=== PATIENT | male | born 2000 | race Hispanic/Latino ===

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

== ENCOUNTER 2019-06-08 17:15 | Emergency (ER) | payer OTHER ==
[2019-06-08] MEDS ORDERED: IBUPROFEN 400 MG TABLET ONE (17:37)
[2019-06-08] MEDS ORDERED: IBUPROFEN 200 MG TAB ONE (17:38)
[2019-06-08 18:35] LABS: BASOPHILS % (AUTO) 0.6 % (0.0-5.0); EOSINOPHILS % (AUTO) 1.1 % (0.0-8.0); LYMPHOCYTES % (AUTO) 15.8 % (21.0-51.0); MEAN CORPUSCULAR HEMOGLOBIN 27.8 pg (27.0-33.0); MEAN CORPUSCULAR HGB CONC 33.7 g/dL (32.0-36.0); MEAN CORPUSCULAR VOLUME 82.6 fL (80-100); MONOCYTES % (AUTO) 11.7 % (3.0-13.0); NEUTROPHILS % (AUTO) 70.5 % (40.0-77.0); PLATELET COUNT (AUTO) 210 K/uL (130-400); RED BLOOD CELL COUNT(AUTO) 5.57 MIL/uL (4.50-6.20); RED CELL DISTRIBUTION WIDTH 12.5 % (11.0-15.5); WHITE BLOOD COUNT (AUTO) 6.6 K/uL (4.8-10.8)
[2019-06-08 18:53] LABS: ALBUMIN 4.3 g/dL (3.5-5.0); BILIRUBIN,TOTAL 0.3 mg/dL (0.2-1.0); TOTAL PROTEIN, SERUM 8.1 g/dL (6.0-8.3)
[2019-06-08 19:01] LABS: RAPID GROUP A STREP NEGATIVE (NEGATIVE)
[2019-06-08 19:04] LABS: POTASSIUM 3.7 mmol/L (3.5-5.1)
[2019-06-08 20:27] LABS: INR 0.97 (0.85-1.15); PARTIAL THROMBOPLASTIN TIME 33.2 SEC (26.3-35.5); PROTHROMBIN TIME 10.5 SEC (9.6-11.6)
[2019-06-08 20:35] LABS: CREATINE KINASE, TOTAL 187 U/L (21-232); MYOGLOBIN 60 ng/mL (10-92); TROPONIN I < 0.04 ng/mL (0.00-0.06)
== END 2019-06-08 21:50 | disposition home or self-care (01) ==
LOC: EDH 17:15
DX: B34.9 Viral infection, unspecified (principal); J45.909 Unspecified asthma, uncomplicated; Z20.828 Contact with and (suspected) exposure to other viral communicable diseases
CPT/HCPCS: 36415; 71045; 80053; 82550; 83615; 83874; 84145; 84484; 85025; 85610; 85730; 87040; 87633; 87635; 87804; 87880; 93005

== ENCOUNTER 2022-04-30 01:06 | Emergency (ER) | payer OTHER, SELFPAY ==
[~2022-04-30] VITALS: Ht 160 cm; Wt 87.5 kg
[2022-04-30] MEDS ORDERED: KETOROLAC 15MG/ML VIAL (15MG/ML) IV ONE (01:30)
[2022-04-30 01:40] LABS: BASOPHILS % (AUTO) 0.6 % (0.0-5.0); EOSINOPHILS % (AUTO) 1.5 % (0.0-8.0); HEMATOCRIT 44.5 % (42-54); LYMPHOCYTES % (AUTO) 23.1 % (21.0-51.0); MEAN CORPUSCULAR HEMOGLOBIN 28.8 pg (27.0-33.0); MEAN CORPUSCULAR HGB CONC 34.6 g/dL (32.0-36.0); MEAN CORPUSCULAR VOLUME 83.2 fL (79-99); MONOCYTES % (AUTO) 5.6 % (3.0-13.0); NEUTROPHILS % (AUTO) 68.8 % (40.0-77.0); PLATELET COUNT (AUTO) 295 K/uL (130-400); RED BLOOD CELL COUNT(AUTO) 5.35 MIL/uL (4.50-6.20); RED CELL DISTRIBUTION WIDTH 12.2 % (11.0-15.5)
[2022-04-30 01:47] LABS: CREATININE 0.9 mg/dL (0.5-1.5); POTASSIUM 3.9 mmol/L (3.5-5.1)
[2022-04-30 01:52] LABS: ALBUMIN 4.2 g/dL (3.5-5.0); TOTAL PROTEIN, SERUM 8.1 g/dL (6.0-8.3)
[2022-04-30 02:10] LABS: APPEARANCE,URINE CLOUDY (CLEAR); BILIRUBIN,URINE NEGATIVE (NEGATIVE); COLOR,URINE LIGHT-YELLOW (YELLOW); GLUCOSE, URINE (UA) NEGATIVE (NEGATIVE); KETONES,URINE NEGATIVE (NEGATIVE); LEUKOCYTE ESTERASE ,URINE 250 Leu/uL (NEGATIVE); NITRATE,URINE NEGATIVE (NEGATIVE); OCCULT BLOOD,URINE NEGATIVE (NEGATIVE); PH,URINE 6.5 (5.0-8.0); PROTEIN,URINE NEGATIVE (NEGATIVE); UROBILINOGEN,URINE 0.2 mg/dL (0.2-1.0)
[2022-04-30] MEDS ORDERED: IBUP-2071 PO (02:16)
[2022-04-30] MEDS ORDERED: DOXY100C5 PO (02:16)
[2022-04-30 02:27] VITALS: BP 126/68
[2022-04-30] MEDS ORDERED: CEFTRIAXONE 500MG VIAL IM SCH (02:30)
[2022-04-30] MEDS ORDERED: DOXYCYCLINE HYCLATE 100 MG TABLET PO SCH (02:30)
[2022-04-30 02:33] LABS: WBC,URINE 51-100 /HPF (0-1)
== END 2022-04-30 02:56 | disposition home or self-care (01) ==
LOC: EDH 01:06
DX: N45.1 Epididymitis (principal); J45.909 Unspecified asthma, uncomplicated; Z79.1 Long term (current) use of non-steroidal anti-inflammatories (NSAID)
CPT/HCPCS: 99285; 96374; 80053; 85025; 87088; 87797; 87486; 81001; 36415; 76870; 96372; J0696; J1885

== ENCOUNTER 2022-08-20 02:04 | Emergency (ER) | payer BC, OTHER ==
[~2022-08-20] VITALS: Ht 160 cm; Wt 90.3 kg
[~2022-08-20 02:04] MED LIST: DOXY100C5 PO; IBUP-2071 PO
[2022-08-20 03:57] VITALS: BP 128/76
== END 2022-08-20 05:46 | disposition home or self-care (01) ==
LOC: EDH 02:04
DX: F10.129 Alcohol abuse with intoxication, unspecified (principal); F12.19 Cannabis abuse with unspecified cannabis-induced disorder; J45.909 Unspecified asthma, uncomplicated
CPT/HCPCS: 99281